=== PATIENT | male | born 1995 | race African-American/Black ===

== ENCOUNTER 2023-11-01 07:21 | Emergency (ER) | payer MEDICAID, SELFPAY ==
--- NOTE | ~2023-11-01 | CT_ITS ---
EXAMINATION: CT pelvis w con DATE: 11/01/2023 08:50 INDICATION: Concern for posterior left scrotal abscess TECHNIQUE: Computed tomography (CT) of the pelvis was performed with 100 mL Omnipaque-350 intravenous contrast. Automated exposure control and iterative reconstruction technique were employed.The dose-l ength product was 167.55 mGy-cm. COMPARISON: None FINDINGS: There is a 2.9 x 2.5 x 0.9 cm peripheral enhancing abscess at the left posterior base of the scrotum. No hydrocele. Bilateral inguinal canals appear normal. No other abscesses identified. No soft tissue gas. Bladder, prostate and visualized portion of the bowels including the appendix are are normal. N o free fluid in the pelvis. No pathologically enlarged pelvic or inguinal lymphadenopathy. Mild lower lumbar spondylosis with disc bulges at L4-L5 and L5-S1. IMPRESSION: 1. 2.9 x 2.5 x 0.9 cm subcutaneous abscess at the left posterior base of the scrotum. Reviewed, dictated and finalized at location A. IMPRESSION: 1. 2.9 x 2.5 x 0.9 cm subcutaneous abscess at the left posterior base of the sc rotum.
[2023-11-01 07:25] VITALS: BP 128/88; PULSE 89; RESP 15; TEMP 36.7; O2SAT 100
--- NOTE | 2023-11-01 07:35 | ED.SKABFB ---
HPI - Skin/Abscess/Foreign Bdy General Chief complaint: Skin/Abscess/Foreign Body Stated complaint: boil in groin Time Seen by Provider: 11/01/23 07:26 History of Present Illness HPI narrative: Patient is a healthy 28 year old male here with concern for boil on his scrotum. He noted it began about 2 days ago, has been fluctuating in size and is tender to touch and when his clothing rubs against it. He notes it is located in the posterolateral aspect of his left testicle. He denies active drainage. He has not taken anything for the pain or symptoms at home. He notes one similar episode in the past, was seen in a hospital for it and took antibiotics. He did not require I&D. He is sexually active with one partner, has regular condom use. No penile discharge. No associated fever or chills. No pain with urination or defecation. No perianal sores or pain. He does note some posterior buttock pain for several years when he drives for long periods of time, pain is located in is bilateral buttock muscles and radiates to his posterior upper thighs. Related Data Allergies Allergy/AdvReac Type Severity Reaction Status Date / Time No Known Allergies Allergy Verified 11/01/23 07:27 Review of Systems Review of Systems: All systems reviewed & are unremarkable except as noted in HPI and below Exam Narrative: GENERAL: Well-appearing, well-nourished, and in no acute distress. HEAD: Normocephalic, atraumatic. EYES: PERRLA and EOMI. ENT: Nares clear. Mucous membranes moist. NECK: Supple. CHEST: Clear to auscultation. No respiratory distress. HEART: Regular rate and rhythm. Normal peripheral pulses. ABDOMEN: Soft, nontender, nondistended. : Exam performed with PITA Soto as information management manager. Patient has a 2 x 2 cm area of mild erythema, fluctuance and tenderness over the posterior lateral aspect of the left scrotum. Tenderness does not appear to extend to the perineum or perianal area. Remainder of scrotum nontender bilaterally, no penile sores or discharge. EXTREMITIES: Normal range of motion. No edema. SKIN: Warm, dry, no rash. NEURO: No focal deficits. Alert and oriented x3. Course Course Emergency Course: Chart review performed. Patient here for boil in left groin x2 days. Triage vitals normal. No prior visits in our system. Patient seen and evaluated, non toxic appearing. In no acute distress with no constitutional symptoms. Appears to have an area of fluctuance and tenderness in the right posterior scrotum. Given shape and location, will do CT pelvis to get further detail of this lesion and determine if I&D/antibiotics are required. Lab work imaging reviewed, white blood cell count of 10.9, electrolytes and renal function grossly normal. CRP minimally elevated at 1.6. CT shows a 2.9 x 2.5 x 0.9 cm subcutaneous abscess at the left posterior base of the scrotum. Discussed plan for I&D under ultrasound guidance and antibiotics. Patient refuses I&D. I advise that there is a high chance that it may not resolve with antibiotics alone. He would like to proceed with trial of antibiotics give this has worked in the past. Will refer to Urology outpatient should abscess not fully resolve. The results of pertinent diagnostic studies and exam findings were discussed. The patient?s provisional diagnosis and plan of care were discussed with the patient and present family. The patient and/or present family expressed understanding of the diagnosis and plan. The nurse was instructed to provide written instructions and appropriate follow-up information. The patient understands their need and responsibility to obtain additional follow-up as instructed. The risks of medications administered and prescribed were discussed with the patient and family present. Vital Signs Vital signs: Vital Signs Temperature 98.1 F 11/01/23 07:25 Pulse Rate 89 11/01/23 07:25 Respiratory Rate 15 11/01/23 07:25 Blood Pressure 128/88 11/01/23 07:25 Pulse Oximetry 100 04
[2023-11-01 08:17] LABS: Basophils Percent Auto 0.3 % (0.2-1.2); Eosinophils Absolute Auto 0.1 K/mm3 (0-0.3); Eosinophils Percent Auto 0.5 % (0-4.4); Hematocrit 41.4 % (42.0-52.0); Hemoglobin 13.9 g/dL (14.0-18.0); Immature Granulocyte Absolute 0.03 K/mm3 (0.00-0.031); Immature Granulocyte Percent A 0.3 % (0-0.5); Lymphocytes Absolute Auto 2.11 K/mm3 (0.9-3.2); Lymphocytes Percent Auto 19.4 % (18.3-44.2); Mean Corpuscular HGB Conc 33.6 g/dl (32-36); Mean Corpuscular Hemoglobin 32.9 pg (26-34); Mean Corpuscular Volume 98.1 fl (80-100); Mean Platelet Volume 8.7 fl (7.4-10.4); Monocytes Absolute Auto 0.6 K/mm3 (0.1-0.6); Monocytes Percent Auto 5.2 % (2.6-8.5); Neutrophils Absolute Auto 8.1 K/mm3 (1.3-6.7); Neutrophils Percent Auto 74.3 % (45.5-73.1); Platelet Count Result 182 k/mm3 (150-375); Red Blood Count 4.22 M/mm3 (4.6-6.20); Red Cell Distribution Width 14.3 % (11.5-14.5); White Blood Count 10.9 K/mm3 (4.5-10.0)
[2023-11-01 08:32] LABS: Alanine Aminotransferase 12 U/L (6-50); Albumin Level 4.4 g/dL (3.5-5.1); Alkaline Phosphatase 66 U/L (38-126); Anion Gap 8 mmol/L (4-12); Aspartate Amino Transferase 20 U/L (17-59); Bilirubin,Total 0.6 mg/dL (0.2-1.3); Blood Urea Nitrogen 12 mg/dL (9-20); CRP 1.6 mg/dL (<1.0); Calcium 9.9 mg/dL (8.4-10.2); Carbon Dioxide 26 mmol/L (22-30); Chloride 107 mmol/L (98-107); Estimated CRCL calculation 73 ml/min; Estimated Glomerular Filt Rate > 60; Glucose 162 mg/dL (65-110); Potassium 3.7 mmol/L (3.4-5.0); Sodium 141 mmol/L (137-145)
[2023-11-01 09:52] VITALS: BP 129/90; PULSE 72; RESP 18; TEMP 36.6; O2SAT 100
== END 2023-11-01 09:53 | disposition home or self-care (01) ==
PROVIDERS: Emergency Provider Student in an Organized Health Care Education/Training Program
DX: N49.2 Inflammatory disorders of scrotum (principal)
CPT/HCPCS: 36415; 72193; 80053; 85025; 86140; 99284; Q9967

== ENCOUNTER 2024-03-29 01:01 | Emergency (ER) | payer MEDICAID, SELFPAY ==
[2024-03-29 01:04] VITALS: BP 111/75; PULSE 79; RESP 17; TEMP 36.4; O2SAT 99
== END 2024-03-29 07:22 | disposition left against medical advice (07) ==
LOC: ANHED 06:38
DX: Z11.3 Encounter for screening for infections with a predominantly sexual mode of transmission (principal)
CPT/HCPCS: 99199